=== PATIENT | female | born 1970 | race Caucasian/White ===

== ENCOUNTER 2018-03-18 14:56 | Emergency (ER) | payer OTHER ==
[~2018-03-18] VITALS: Ht 157.5 cm; Wt 84.9 kg
[~2018-03-18 14:56] MED LIST: ADVAIR 250/501 DISK IH; BUSPAR30 MG PO; DAYPRO600 MG PO; DULOXETINE HCL60 MG PO; GEODON80 MG PO; KLONOPIN0.125 MG PO; KLONOPIN1 MG PO; KLONOPIN2 MG PO; MINIPRESS1 MG PO; MORPHINE PO; NORCO 5/3251 TABLET PO; OMEPRAZOLE40 M1 PO; TOPAMAX100 MG PO; TOPAMAX200 MG PO; TOPAMAX50 MG PO; TOPIRAMATE100 MG PO; ZANAFLEX2 MG PO
[2018-03-18 15:01] VITALS: BP 114/77
[2018-03-18 18:16] LABS: APPEARANCE CLEAR ((CLEAR)); BILIRUBIN NEGATIVE; BLOOD NEGATIVE; COLOR STRAW ((YELLOW)); GLUCOSE (STRIP) NEGATIVE; KETONES NEGATIVE; LEUKOCYTES NEGATIVE; NITRITE NEGATIVE; PROTEIN (STRIP) NEGATIVE; SPECIFIC GRAVITY 1.008 (1.000-1.030); UCUL ADDED? NO; UROBILINOGEN 0.2 MG/DL (0.2-1.0)
[2018-03-18 18:24] LABS: HEMOGLOBIN 12.2 G/DL (11.9-15.5); MCH 27.7 PG (29.0-34.0); MCHC 33.9 G/DL (30.0-36.0); MCV 81.8 FL (83-99); PLATELET COUNT 259 K/uL (156-360); RBC DIS.WIDTH-CV 13.6 % (11.8-14.6); RBC DIS.WIDTH-SD 40.1 % (39-53); WHITE BLOOD COUNT 10.3 K/uL (4.1-10.2)
[2018-03-18 18:32] LABS: ALBUMIN 4.1 g/dL (3.2-4.8); CHLORIDE 109 mEq/L (99-109); POTASSIUM 3.8 mEq/L (3.7-5.4); SODIUM 142 mEq/L (136-147)
[2018-03-18 18:35] LABS: GLUCOSE 97 mg/dL (70-99)
[2018-03-18 18:37] LABS: TOTAL BILIRUBIN 0.2 mg/dL (0.0-1.0)
[2018-03-18 18:38] LABS: ALKALINE PHOSPHATASE 81 IU/L (3-129); CREATININE 0.9 mg/dL (0.6-1.3); GFR ESTIMATE (CALCULATED) > 59 mL/min/
[2018-03-18 18:39] LABS: UREA NITROGEN (BUN) 12 mg/dL (9-23)
[2018-03-18 18:40] LABS: AST (GOT) 14 IU/L (2-34)
[2018-03-18 18:41] LABS: ALT (GPT) 14 IU/L (3-49)
[2018-03-18 18:47] LABS: TROP-I INTERPRETATION NEGATIVE; TROPONIN-I 0.02 ng/mL (0.0-0.30)
[2018-03-18 18:49] LABS: LIPASE 27 U/L (1.0-51.0)
== END 2018-03-18 20:03 | disposition home or self-care (01) ==
LOC: EME 14:56
PROVIDERS: Physician Assistant Medical
DX: S90.32XA Contusion of left foot, initial encounter (principal); R10.13 Epigastric pain; R07.89 Other chest pain; W11.XXXA Fall on and from ladder, initial encounter; J45.909 Unspecified asthma, uncomplicated; Z86.73 Personal history of transient ischemic attack (TIA), and cerebral infarction without residual deficits; F43.10 Post-traumatic stress disorder, unspecified; G89.29 Other chronic pain; Z91.040 Latex allergy status; Z88.2 Allergy status to sulfonamides; Z88.6 Allergy status to analgesic agent
CPT/HCPCS: 71046; 73630; 74177; 80053; 81003; 83690; 84484; 85027; 93005; 99281; 99283; J7030